=== PATIENT | female | born 1955 | race Caucasian/White ===

== ENCOUNTER → 2018-04-25 | Outpatient (CLI) | payer BC ==
[~2018-04-25] MED LIST: VIT1CAPS44 PO
[2018-04-25 19:00] LABS: BASOPHILS % (AUTO) 0 % (0-10); EOSINOPHILS % (AUTO) 0 % (0-10); HEMATOCRIT 42 % (35-52); HEMOGLOBIN 13.8 G/DL (11.5-16.0); LYMPHOCYTES % (AUTO) 10 % (12-44); MEAN CORPUSCULAR HEMOGLOBIN 29 PG (25-34); MEAN CORPUSCULAR HGB CONC 33 G/DL (32-36); MEAN CORPUSCULAR VOLUME 89 FL (80-99); MEAN PLATELET VOLUME 10.8 FL (7.4-10.4); MONOCYTES # (AUTO) 0.6 X 10^3 (0.0-1.0); MONOCYTES % (AUTO) 6 % (0-12); NEUTROPHILS # (AUTO) 8.1 X 10^3 (1.8-7.8); NEUTROPHILS % (AUTO) 84 % (42-75); PLATELET COUNT 259 10^3/uL (130-400); RED BLOOD COUNT 4.69 10^6/uL (4.35-5.85); RED CELL DISTRIBUTION WIDTH 14.1 % (10.0-14.5); WHITE BLOOD COUNT 9.6 10^3/uL (4.3-11.0)
[2018-04-25 19:25] LABS: ALANINE AMINOTRANSFERASE 208 U/L (0-55); ALBUMIN 4.2 GM/DL (3.2-4.5); ALKALINE PHOSPHATASE 202 U/L (40-136); AMYLASE 28 U/L (25-125); BILIRUBIN,TOTAL 1.8 MG/DL (0.1-1.0); BUN/CREATININE RATIO 9; CALCIUM 9.6 MG/DL (8.5-10.1); CARBON DIOXIDE 21 MMOL/L (21-32); CHLORIDE 107 MMOL/L (98-107); CREATININE SERUM 0.76 MG/DL (0.60-1.30); GFR ESTIMATED > 60; GLUCOSE 115 MG/DL (70-105); LIPASE 9 U/L (8-78); POTASSIUM 3.9 MMOL/L (3.6-5.0); SODIUM 140 MMOL/L (135-145); TOTAL PROTEIN 7.4 GM/DL (6.4-8.2)
--- NOTE | 2018-04-25 20:21 | Diagnostic Imaging Report ---
PROCEDURE: CT abdomen and pelvis with and without contrast. TECHNIQUE: Precontrast acquisitions were acquired through the abdomen and pelvis. Multiple contiguous axial images were obtained through the abdomen and pelvis after the administration of intravenous contrast. INDICATION: Right-sided abdominal pain. COMPARISON: None. FINDINGS: Mild linear atelectasis or scarring in the lung bases. Moderately distended gallbladder. No apparent gallbladder wall thickening or cholelithiasis. The common bile duct measures up to 1.1 cm in diameter. The liver, pancreas, spleen, adrenals, left kidney, collecting systems and partially opacified bladder are negative. A 1.1 cm mass in the right kidney containing macroscopic fat consistent with a benign angiomyolipoma. Reproductive structures are grossly unremarkable. Normal appendix. No free intraperitoneal air or fluid. No lymphadenopathy. No evidence of bowel obstruction or inflammation. No acute osseous findings. IMPRESSION: Distended gallbladder. Prominent common bile duct measuring up to 1.1 cm in diameter. No apparent gallbladder wall thickening or cholelithiasis. This could be further investigated with dedicated ultrasound. Findings discussed with Dr. Guevara Velasquez at 8:15 PM on 04/25/2018. Dictated by: Dictated on workstation # [id number]
== END ==
LOC: RAD 18:36
PROVIDERS: ATTEND Family Medicine
DX: K82.8 Other specified diseases of gallbladder (principal); R10.31 Right lower quadrant pain
CPT/HCPCS: 36415; 74178; 80053; 82150; 83690; 85025

== ENCOUNTER → 2018-05-10 | Outpatient (CLI) | payer BC ==
--- NOTE | 2018-05-10 11:56 | Diagnostic Imaging Report ---
PROCEDURE: US Gallbladder. TECHNIQUE: Multiple real-time grayscale images were obtained over the right upper quadrant in various projections. INDICATION: Abdominal pain. There are no previous gallbladder ultrasound examinations available for comparison. FINDINGS: The CT abdomen/pelvis exam of 04/25/2018 did note that the gallbladder was distended and that the common bile duct was prominent, measuring 1.1 CM (normal 0.6 CM or less). There was no evidence for cholelithiasis or acute cholecystitis, however. On this study, there do appear to be a number of small gallstones within the gallbladder. The gallbladder wall is not thickened and there is no pericholecystic fluid to suggest acute cholecystitis. The common bile duct also measures less than on the prior exam and is now estimated to be approximately 0.6 CM. The right kidney is unremarkable. The pancreas and proximal aorta were obscured by bowel gas. IMPRESSION: 1. There is cholelithiasis, but there is no evidence for acute cholecystitis. The common bile duct is no longer dilated. 2. If clinical concern regarding an acute abnormality of the gallbladder persists, then a nuclear medicine hepatobiliary scan would be recommended for further study. 3. These results were discussed with Dr. Arreola. Dictated by: Dictated on workstation # [id number]
== END ==
LOC: RAD 09:44
PROVIDERS: ATTEND Surgery
DX: K80.20 Calculus of gallbladder without cholecystitis without obstruction (principal)
CPT/HCPCS: 76705

== ENCOUNTER 2018-05-23 11:37 | Outpatient (CLI) | payer BC ==
[~2018-05-23] VITALS: Ht 175.3 cm; Wt 108.4 kg
[2018-05-23 11:56] VITALS: BP 135/84
[2018-05-23] MEDS ORDERED: VIT1CAPS44 PO (11:58)
== END 2018-05-23 12:07 | disposition home or self-care (01) ==
LOC: PREOP 11:37
PROVIDERS: ATTEND Surgery
DX: Z01.818 Encounter for other preprocedural examination (principal)
CPT/HCPCS: 87081

== ENCOUNTER 2018-05-30 06:10 | Day surgery (SDC) | payer BC ==
[~2018-05-30] VITALS: Ht 175.3 cm; Wt 108.4 kg
[2018-05-30 06:30] VITALS: BP 124/74
[2018-05-30] MEDS ORDERED: ceFAZolin 2 GM IV Premixed 50 ML IV ONE (06:45)
[2018-05-30] MEDS: LACTATED RINGERS 1,000 ML IV PRN ×2 (07:10→08:25)
[2018-05-30] MEDS ORDERED: LIDOCAINE 1% INJ 20 ML 20 ML VIAL ONE (07:11)
[2018-05-30] MEDS ORDERED: BUPIVACAINE 0.5% 30 ML (SENSORCAINE) VIAL ONE (07:11)
[2018-05-30] MEDS ORDERED: fentaNYL INJECTION 100 MCG/2 ML AMP ONE ×2 (07:12→08:59)
[2018-05-30] MEDS ORDERED: MIDAZOLAM 2 MG/2 ML (VERSED) VIAL ONE (07:12)
[2018-05-30] MEDS ORDERED: DEXAMETHASONE 10 MG/ML (DECADRON) 1 ML VIAL ONE (07:16)
[2018-05-30] MEDS ORDERED: proPOfol 200 MG/20 ML (DIPRIVAN) VIAL IV ONE (07:16)
[2018-05-30] MEDS ORDERED: ROCURONIUM 10 MG/ML 5 ML SYRINGE IV ONE (07:16)
[2018-05-30] MEDS ORDERED: SEVOFLURANE (ULTANE) 15 ML INHAL SOLN ONE (07:16)
[2018-05-30] MEDS ORDERED: LIDOCAINE PF 2% 5 ML (XYLOCAINE) VIAL ONE (07:16)
[2018-05-30] MEDS ORDERED: ONDANSETRON 4 MG/2 ML (SDV) Z0FRAN ONE (07:16)
--- NOTE | 2018-05-30 08:00 | Progress Note-Pre Operative ---
Pre-Operative Progress Note H&P Reviewed The H&P was reviewed, patient examined and no changes noted. Date Seen by Provider: May 30, 2018 Time Seen by Provider: 07:59 Date H&P Reviewed: May 30, 2018 Time H&P Reviewed: 07:59 Pre-Operative Diagnosis: ruq abdominal pain, symptomatic cholelithiasis COOKIE GOSS DO May 30, 2018 08:00
[2018-05-30] MEDS ORDERED: GLYCOPYRROLATE 0.2 MG/ML (ROBINUL) 2 ML VIAL ONE (09:01)
[2018-05-30] MEDS ORDERED: NEOSTIGMINE 1 MG/ML 5 ML SYRINGE ONE (09:01)
[2018-05-30] MEDS ORDERED: ACHD5005 PO (09:02)
[2018-05-30] MEDS ORDERED: DOCU-143 PO (09:02)
--- NOTE | 2018-05-30 09:02 | Progress Note-Post Operative ---
Post-Operative Progess Note Surgeon (s)/Cnc Applications Engineer (s) Surgeon COOKIE GOSS DO Cnc Applications Engineer: Dr. Deutsch Pre-Operative Diagnosis ruq abdominal pain, symptomatic cholelithiasis Post-Operative Diagnosis choledocholithiasis, symptomatic cholelithiasis Procedure & Operative Findings Date of Procedure 05/30/18 Procedure Performed/Findings lap byron c ioc Anesthesia Type gen Estimated Blood Loss Estimated blood loss (mL): min Specimens/Packing Specimens Removed gallbladder COOKIE GOSS DO May 30, 2018 09:01
--- NOTE | 2018-05-30 09:04 | Discharge Inst-Simple/Standard ---
Discharge Inst-Standard Discharge Medications New, Converted or Re-Newed RX: RX on Chart Patient Instructions/Follow Up Plan of Care/Instructions/FU: 2 weeks Maxwell Do not eat or drink anything until cleared with Dr. Taylor Activity as Tolerated: No Discharge Diet: Other Diet (nothing by mouth until cleared by Dr. Taylor then regular diet.) Other Inst to Patient Follow up Appt: Make appointment for 2 weeks. Instructions: No lifting greater than 10 pounds. No strenuous activity. May shower in 24 hours, no tub bath or soaking. Use incentive spirometer at home as directed. No Smoking Skin/Wound Care: You have special glue over incisions it will fall off on its own. Symptoms to Report: Appetite Changes, Extremity Discoloration, Numbness/Tingling, Swelling Increased , Bleeding Excessive, Eyesight Changes, Pain Increased, Urine Color Change, Constipation(Persistent), Fever over 101 degree F, Pain/Pressure in chest, Urinating Difficulty, Cough Up/Vomit Blood, Heart Beat Irreg/Pounding, Pain/ Pressure in jaw, Vaginal Bleeding Increase, Cramps in feet or legs, Lightheadedness, Pain/Pressure in shoulder, Diarrhea(Persistent), Memory Changes Suddenly, Questions/Concerns, Weight gain consecutive days, Dizziness/ Fainting, Nausea/Vomiting, Shortness of Breath, Weight gain over 2 pounds. If eyes or skin turn yellow notify physician. If questions or concerns contact your physician Or seek help at emergency department. COOKIE GOSS DO May 30, 2018 09:04
[2018-05-30] MEDS ORDERED: morphine INJ 10 MG/ML 1ML (SYR OR VIAL) IVP ONE (09:30)
--- NOTE | 2018-05-30 10:06 | Diagnostic Imaging Report ---
EXAMINATION: Fluoroscopy INDICATION: Abdominal pain Fluoroscopic assistance was provided for Dr. Arreola. 22 seconds of fluoroscopy time was utilized. 122 images of the right upper quadrant were received from the or. There is a laparoscopic device in place. There has been opacification of the common bile duct via the cystic duct catheter. The common bile duct is slightly dilated but there is no defect within the duct to suggest a calculus. A portion of the duct however is obscured by one of the laparoscopic devices. There is no extension of the contrast into the small bowel. Impression: Fluoroscopic assistance was provided for Dr. Arreola. Dictated by: Dictated on workstation # [id number]
[2018-05-30 10:10] VITALS: BP 98/65
--- NOTE | 2018-05-30 10:12 | OPERATIVE REPORT ---
DATE OF SERVICE: 05/30/2018 PREOPERATIVE DIAGNOSES: Right upper quadrant abdominal pain; symptomatic cholelithiasis. POSTOPERATIVE DIAGNOSES: Right upper quadrant abdominal pain; symptomatic cholelithiasis and choledocholithiasis. PROCEDURE: Laparoscopic cholecystectomy with intraoperative cholangiogram. SURGEON: Cookie Arreola DO. WELFARE CENTRE MANAGER: Dr. Deutsch, assisted in retraction, dissection and closure. ANESTHESIA: General. ESTIMATED BLOOD LOSS: Minimal. COMPLICATIONS: None. INDICATIONS: The patient is a 63-year-old female with right upper quadrant abdominal pain. She is also demonstrating gallstones. She previously had a slightly dilated common bile duct. She understands risks and benefits of the procedure and wished to proceed with procedure. Consent was signed on the chart. DESCRIPTION OF PROCEDURE: The patient was taken to the operating suite. She was prepped and draped in a sterile fashion. Surgical pause was performed. Lela technique was used to enter the abdomen just above the umbilicus. A 0 Vicryl was placed in a [id number] fashion at the fascia for closure at the end. A balloon trocar was inserted into the abdomen and pneumoperitoneum was achieved. Under direct visualization of the laparoscope, a 5 mm trocar was then placed in the subxiphoid region and two 5 mm trocars were placed in the right upper quadrant. Gallbladder was grasped and elevated. Some adhesions were stuck to the neck of the gallbladder, which were then begun to be dissected off bluntly and with some slight cautery with [place] dissection. The cystic duct and cystic artery were then dissected out. Clips were placed on the proximal and distal portion of the cystic artery and a clip was placed in the distal portion of the cystic duct. The duct was then partially transected. Arrow catheter was inserted, difficult to insert and a stone within the cystic duct was able to be manipulated out. The Arrow catheter was then inserted into the cystic duct and cholangiogram was then performed. There was a small filling defect in the distal portion of the common bile duct and no contrast made its way into the duodenum consistent with choledocholithiasis. The Arrow catheter was removed. Clips were placed on the proximal portion of the cystic duct and the duct and artery were then completely transected. Hook cautery was used to dissect the gallbladder from the gallbladder fossa achieving hemostasis. Once removed, it was placed in an Endobag and removed through the 12 mm trocar site. The abdomen was then irrigated and suctioned with copious amounts of irrigation. Hemostasis had been achieved. The abdomen was then desufflated and the trocars were removed. The 0 Vicryl was then secured closing the fascia at the 12 mm trocar site. The skin was then closed using 4-0 Monocryl in a subcuticular fashion. The abdomen was then washed and dried and Skin Affix was placed over the incisions. The patient tolerated procedure well without complications. She was taken to the recovery room in stable condition. A transfer has been arranged to of [facility] for ER[facility]. Job ID: [id number] DocumentID: [id number] Dictated Date: 05/30/2018 09:21:24 Casing Flusher Date: 05/30/2018 10:12:01 Dictated By: COOKIE ARREOLA DO
[2018-05-30 10:40] VITALS: BP 108/69
[2018-05-30 11:10] VITALS: BP 109/63
--- NOTE | 2018-05-30 11:38 | Anesthesia-General Post-Op ---
General Patient Condition Mental Status/LOC: Same as Preop Cardiovascular: Satisfactory Nausea/Vomiting: Absent Respiratory: Satisfactory Pain: Controlled Complications: Absent Post Op Complications Complications None Follow Up Care/Instructions Patient Instructions None needed. Anesthesia/Patient Condition Patient Condition Patient is doing well, no complaints, stable vital signs, no apparent adverse anesthesia problems. No complications reported per nursing. RAJ GARCIA CRNA May 30, 2018 11:38
[2018-05-30 11:45] VITALS: BP 109/63
== END 2018-05-30 11:45 | disposition home or self-care (01) ==
LOC: SDC 06:10
PROVIDERS: ATTEND Surgery
DX: K80.10 Calculus of gallbladder with chronic cholecystitis without obstruction (principal); E66.01 Morbid (severe) obesity due to excess calories; Z68.35 Body mass index [BMI] 35.0-35.9, adult
CPT/HCPCS: 88304; 94664

== ENCOUNTER 2022-10-30 10:05 | Emergency (ER) | payer MEDICARE ==
[~2022-10-30] VITALS: Ht 175 cm; Wt 102.0 kg
[~2022-10-30 10:05] MED LIST changes: +ACHD5005 PO; +DOCU-143 PO
--- NOTE | 2022-10-30 10:22 | ED General ---
General Chief Complaint: General Problems/Pain Stated Complaint: DIZZINESS | VOMITING Source of Information: Patient Exam Limitations: No Limitations History of Present Illness Date Seen by Provider: Oct 30, 2022 Time Seen by Provider: 10:36 Initial Comments Patient is a 67-year-old female who presents to the emergency room with a chief complaint of dizziness. Patient states she had some mild symptoms about 10 days ago after having a bit of a sinus infection. She did not take antibiotics. She states she took some Advil cold and flu. She states this morning when she woke up as she was getting ready for her day she started having worsening symptoms of dizziness that caused her to feel quite nauseated and she vomited several times at home. She denies headache, double vision. She states her ears feel "full" like there is fluid in them. No sore throat, fevers, chills, productive cough. No diarrhea. No urinary complaints. No recent trauma. No headache. Patient states staying completely still improves her dizziness. Any movement worsens it. Patient has a negative past medical history she states that her only medical problem is "bad knees". She does not take medication for diabetes, hypertension and heart disease etc. Last time she had a general medical exam was about 2 years ago when she had a cholecystectomy. Resting in the bed she states she feels fine. Vital signs are completely stable. Timing/Duration: 1-3 Hours Severity: Severe Associated Systoms: Nausea/Vomiting Allergies and Home Medications Allergies Coded Allergies: erythromycin base (Verified Allergy, Unknown, NAUSEA, 05/23/18) Patient Home Medication List Home Medication List Reviewed: Yes Docusate Sodium (Colace) 100 Mg Capsule, 100 MG PO DAILY Prescribed by: COOKIE GOSS on 05/30/18 09 Hydrocodone Bit/Acetaminophen (Lortab 5 Mg Tablet) 1 Tab Tab, 1-2 TAB PO Q6H PRN for PAIN-MODERATE Prescribed by: COOKIE GOSS on 05/30/18901 Vit C/E/Zn/Coppr/Lutein/Zeaxan (Preservision Areds 2 Softgel) 1 Each Capsule, 1 EACH PO DAILY, (Reported) Entered as Reported by: ANANDA JIANG on 05/23/18 0807 Review of Systems Review of Systems Constitutional: see HPI, dizziness EENTM: other (Ears feel full) Respiratory: no symptoms reported Cardiovascular: no symptoms reported Gastrointestinal: nausea, vomiting Genitourinary: no symptoms reported : No Musculoskeletal: no symptoms reported Skin: no symptoms reported Psychiatric/Neurological: Other (Dizziness) All Other Systems Reviewed Negative Unless Noted: Yes Past Zaieyaj-Bfszhe-Crkugy Hx Seasonal Allergies Seasonal Allergies: Yes Past Medical History Tonsillectomy Gall Bladder Disease Arthritis Macular Degeneration Physical Exam Vital Signs Vital Signs - First Documented 10/30/22 10:14 Temp 35.6 Pulse 81 Resp 18 B/P (MAP) 141/80 (100) Pulse Ox 97 O2 Delivery Room Air Capillary Refill : Height, Weight, BMI Height: 5'9.00" Weight: 239lbs. 0.0oz. [id number]; 35.3 BMI Method: General Appearance: No Apparent Distress, WD/WN Eyes: Bilateral Eye Normal Inspection, Bilateral Eye PERRL, Bilateral Eye EOMI HEENT: PERRL/EOMI, Pharynx Normal, Moist Mucous Membranes, TM Abnormal (R) (Effusion right TM, left appears) Neck: Full Range of Motion, Normal Inspection, Non Tender, Supple Respiratory: Lungs Clear, Normal Breath Sounds, No Accessory Muscle Use, No Respiratory Distress Cardiovascular: Regular Rate, Rhythm, Normal Peripheral Pulses Gastrointestinal: Normal Bowel Sounds, Non Tender, Soft Extremity: Normal Capillary Refill, Normal Range of Motion, No Pedal Edema Neurologic/Psychiatric: Alert, Oriented x3, No Motor/Sensory Deficits, Normal Mood/Affect, bar turner II-XII Norm as Tested, Other (Patient has pretty significant nystagmus laying flat with her head turned to the left and attempting to look at the ceiling, i.e. rightward. She cannot tolerate doing the same maneuver on the left.; No cerebellar findings) Skin: Normal Color, Warm/Dry Progress/Results/Core Measures Suspected Sepsis SIRS Temperature: Pulse: Respiratory Rate: Laboratory Tests 10/30/22 10:51: White Blood Count 7.3 Blood Pressure / Mean: Laboratory Tests 10/30/22 10:51: Creatinine 0.70, Platelet Count 227 Results/Orders Lab Results Laboratory Tests Test 10/30/22 10:51 Range/Units White Blood Count 7.3 4.3-11.0 10^3/uL Red Blood Count 4.81 3.80-5.11 10^6/uL Hemoglobin 14.4 11.5-16.0 g/dL Hematocrit 44 35-52 % Mean Corpuscular Volume 91 80-99 fL Mean Corpuscular Hemoglobin 30 25-34 pg Mean Corpuscular Hemoglobin Concent 33 32-36 g/dL Red Cell Distribution Width 13.3 10.0-14.5 % Platelet Count 227 130-400 10^3/uL Mean Platelet Volume 10.5 9.0-12.2 fL Immature Granulocyte % (Auto) 0 % Neutrophils (%) (Auto) 76 H 42-75 % Lymphocytes (%) (Auto) 15 12-44 % Monocytes (%) (Auto) 7 0-12 % Eosinophils (%) (Auto) 1 0-10 % Basophils (%) (Auto) 0 0-10 % Neutrophils # (Auto) 5.6 1.8-7.8 10^3/uL Lymphocytes # (Auto) 1.1 1.0-4.0 10^3/uL Monocytes # (Auto) 0.5 0.0-1.0 10^3/uL Eosinophils # (Auto) 0.1 0.0-0.3 10^3/uL Basophils # (Auto) 0.0 0.0-0.1 10^3/uL Immature Granulocyte # (Auto) 0.0 0.0-0.1 10^3/uL Sodium Level 140 135-145 MMOL/L Potassium Level 3.8 3.6-5.0 MMOL/L Chloride Level 108 H 98-107 MMOL/L Carbon Dioxide Level 21 21-32 MMOL/L Anion Gap 11 5-14 MMOL/L Blood Urea Nitrogen 11 7-18 MG/DL Creatinine 0.70 0.60-1.30 MG/DL Estimat Glomerular Filtration Rate 95 BUN/Creatinine Ratio 16 Glucose Level 107 H 70-105 MG/DL Calcium Level 9.2 8.5-10.1 MG/DL My Orders Orders - RIKI RUIZ MD Cbc With Automated Diff (10/30/22 10:48) Basic Metabolic Panel (10/30/22 10:48) Meclizine Tablet (Antivert Tablet) (10/30/22 11:00) Ondansetron Oral Dissolve Tab (Zofran (10/30/22 11:00) Medications Given in ED Current Medications Medications Dose Ordered Sig/Jet Route Start Time Stop Time Status Last Admin Dose Admin Meclizine HCl 25 mg ONCE ONCE PO 10/30/22 11:00 10/30/22 11:01 DC 10/30/22 10:54 25 MG Ondansetron HCl 4 mg ONCE ONCE PO 10/30/22 11:00 10/30/22 11:01 DC 10/30/22 10:54 4 MG Vital Signs/I&O 10/30/22 10/30/22 10:14 10:58 Temp 35.6 Pulse 81 75 Resp 18 18 B/P (MAP) 141/80 (100) 114/77 (89) Pulse Ox 97 91 O2 Delivery Room Air Room Air Capillary Refill : Progress Note : Time: 11:53 Progress Note Patient seen and evaluated, evaluation today includes physical exam, basic metabolic panel and CBC. Pertinent physical exam findings nystagmus to the right greater than the left however both directions produce nystagmus. No other focal neurologic deficits on exam. Heart is regular, lungs are clear abdomen is soft, no lower extremity edema. Vital signs are perfect. Differential diagnosis based on history and physical exam concern for cerebellar stroke, intracranial tumor, benign positional vertigo. Patient's labs reviewed, all within normal limits, normal electrolytes, normal renal function, not anemic. Patient was treated in the emergency room with Zofran and meclizine. After approximately 30 minutes the patient was reassessed and states she is feeling better. Slight feeling of "dizziness" with head turning to the right but otherwise feels improved. I discussed with her meclizine and Zofran for symptom management as well as [id number]-kbv-ukitaqv Claritin or equivalent with Mucinex for congestion. Patient is happy with the plan of care. All questions are sought and answered. Patient stable for discharge Departure Impression Primary Impression: Benign positional vertigo Disposition: 01 HOME, SELF-CARE Condition: Improved Departure-Patient Inst. Decision time for Depature: 11:56 Referrals: ALANNA CLARKE,LOCAL PHYSICIAN (PCP) Primary Care Physician Patient Instructions: Vertigo ED Add. Discharge Instructions: Drink plenty of fluids to stay well-hydrated. You can take iabd-qet-xrqzydl Claritin or Zyrtec or Siobhan for congestion as well as Mucinex to help thin secretions. Meclizine, 25 mg every 6 hours as needed for dizziness. You may need to take this for the next couple of days. Zofran 4 mg orally dissolving tablets 1 every 8 hours as needed for nausea. If you develop any worsening dizziness especially with headache, fever or any other emergent concerns please return to the emergency room for reevaluation. Scripts Ondansetron (Ondansetron Odt) 4 Mg Tab.rapdis 4 MG SL Q8H PRN for NAUSEA/VOMITING, #12 TAB Prov: RIKI RUIZ MD 10/30/22 Meclizine HCl (Meclizine HCl) 25 Mg Tablet 25 MG PO Q6H PRN for dizziness, #30 TAB Prov: RIKI RUIZ MD 10/30/22 RIKI RUIZ MD Oct 30, 2022 10:22
[2022-10-30 10:58] LABS: BASOPHILS % (AUTO) 0 % (0-10); EOSINOPHILS # (AUTO) 0.1 10^3/uL (0.0-0.3); EOSINOPHILS % (AUTO) 1 % (0-10); HEMATOCRIT 44 % (35-52); HEMOGLOBIN 14.4 g/dL (11.5-16.0); LYMPHOCYTES # (AUTO) 1.1 10^3/uL (1.0-4.0); LYMPHOCYTES % (AUTO) 15 % (12-44); MEAN CORPUSCULAR HEMOGLOBIN 30 pg (25-34); MEAN CORPUSCULAR HGB CONC 33 g/dL (32-36); MEAN CORPUSCULAR VOLUME 91 fL (80-99); MEAN PLATELET VOLUME 10.5 fL (9.0-12.2); MONOCYTES # (AUTO) 0.5 10^3/uL (0.0-1.0); MONOCYTES % (AUTO) 7 % (0-12); NEUTROPHILS # (AUTO) 5.6 10^3/uL (1.8-7.8); NEUTROPHILS % (AUTO) 76 % (42-75); PLATELET COUNT 227 10^3/uL (130-400); WHITE BLOOD COUNT 7.3 10^3/uL (4.3-11.0)
[2022-10-30] MEDS ORDERED: MECLIZINE 25 MG (ANTIVERT) TAB PO ONE (11:00)
[2022-10-30] MEDS ORDERED: ONDANSETRON 4 MG (ZOFRAN) ORAL DISSOLVE TAB PO ONE (11:00)
[2022-10-30 11:13] LABS: POTASSIUM 3.8 MMOL/L (3.6-5.0)
[2022-10-30 11:14] LABS: CALCIUM 9.2 MG/DL (8.5-10.1)
[2022-10-30 11:19] LABS: CREATININE SERUM 0.7 MG/DL (0.60-1.30)
[2022-10-30] MEDS ORDERED: ONDA4TAB11 SL (11:57)
[2022-10-30] MEDS ORDERED: MECL-149 PO (11:57)
[2022-10-30 12:08] VITALS: BP 142/85
== END 2022-10-30 12:08 | disposition home or self-care (01) ==
LOC: EDUNIT# 10:05 → ER 10:09
DX: H81.13 Benign paroxysmal vertigo, bilateral (principal)
CPT/HCPCS: 36415; 80048; 85025; 99283